=== PATIENT | female | born 1960 | race Caucasian/White ===

== ENCOUNTER 2019-05-05 07:06 | Inpatient (IN) | payer BC ==
[2019-05-05] MEDS ORDERED: EFFEXOR37.5 MG PO (07:10)
[2019-05-05 07:46] LABS: BASOPHILS 0.1 % (0-2); EOSINOPHILS 0.1 % (0-7); HEMATOCRIT 40.6 % (36.0-48.0); HEMOGLOBIN 13.8 g/dL (12-16); IMMATURE GRANULOCYTES 0.3 % (0-5); MCH 29.8 pg (26.0-34.0); MCV 87.7 fL (80.0-100.0); MEAN PLATELET VOLUME 8.6 fL (7.4-10.4); MONOCYTES 8.8 % (2-11); NEUTROPHILS 83.7 % (40-80); PLATELET COUNT 225 10x3/uL (130-400); RBC 4.63 10x6/uL (4.00-5.40); RDW 12.9 % (11.5-14.5); WBC 18.7 10x3/uL (4.8-10.8)
[2019-05-05 07:52] LABS: ALKALINE PHOSPHATASE 82 U/L (46-116); ALT (SGPT) 26 U/L (10-68); BILIRUBIN - TOTAL 0.26 mg/dL (0.2-1.3); CALC OSMOLALITY 285 mosm/kg (275-300); CARBON DIOXIDE 29.4 mmol/L (21.0-32.0); CHLORIDE - SERUM 105 mmol/L (98-107); CREATININE - SERUM 0.8 mg/dL (0.6-1.3); GLUCOSE 130 mg/dL (74-106); POTASSIUM - SERUM 4.5 mmol/L (3.5-5.1); SODIUM 142 mmol/L (136-145); UREA NITROGEN 16 mg/dL (7-18); eGFR NON AFRICAN AMERICAN 78 mL/min (90-120)
[2019-05-05 08:03] LABS: CKMB 0.3 U/L (0.0-3.6); CREATINE KINASE 12 UL (21-215); MAGNESIUM - SERUM 2.2 mg/dL (1.8-2.4); TROPONIN-I < 0.017 ng/mL (0.000-0.060)
[2019-05-05 08:34] LABS: APTT 27.5 SECONDS (22.8-39.4); INR 1.02 (0.85-1.17); PROTIME 12.9 SECONDS (11.6-15.0)
[2019-05-05 09:10] VITALS: BP 112/60
--- NOTE | 2019-05-05 10:27 | NUR ---
RECEIVED TO ROOM VIA WHEELCHAIR WITH NASAL CANNULA AT 2.5L. RIGHT HAND PIV WITH VANC. INFUSING. WILL ADMIT.
[2019-05-05 10:30] VITALS: BP 124/59; BMI 32.7
--- NOTE | 2019-05-05 10:58 | MORECARE ---
CASE MANAGEMENT DISCHARGE SUMMARY PATIENT: JENNA ROPER UNIT: [id number] ADM DATE: 05/05/19 AGE: 58 : 58 SEX: F ROOM/BED: D.7864 AUTHOR: SELMA,DOC PHYSICIAN: REFERRING PHYSICIAN: ZOE MCFARLAND MD DATE OF SERVICE: 05/05/19 Discharge Plan Patient Name: JENNA ROPER Facility: [facility]:[place] : 1960 Planned Disposition: Home Anticipated Discharge Date: 05/07/19 Discharge Date: Expected LOS: 2 Initial Reviewer: [email or web address] Initial Review Date: 05/05/2019 Generated: 05/05/19 11:57 am Comments DCP- Discharge Planning Updated by [email or web address]: Dana Prather on 05/05/19 9:[address] Patient Name: JENNA ROPER Admission Status: ER Accout number: [id number] Admission Date: 05-05-2019 : 1960 Admission Diagnosis: Attending: ZOE MCFARLAND Current LOS: 1 Anticipated DC Date: 05-07-2019 Planned Disposition: Home Primary Insurance: BLUE CROSS TRUE BLUE PPO Discharge Planning Comments: CM met with patient and her , Nakul Roper to complete initial dc planning assessment. CM educated patient on the CM role and verbal consent given by patient to complete assessment. CM verified patient's address, phone number, and emergency contact phone numbers. Patient lives at home with her and reports she is independent in her care at home. At discharge patient plans to return home with her and feels this is a safe discharge. CM discussed availability of home health, rehab services, and medical equipment. Patient denied known discharge needs at this time. Patient reports her will transport her home at time of discharge. CM will continue to follow and will assist as needed with dc plans/needs. Computer Peripheral Equipment Operator: Dana Prather RN, [facility] DCP- Discharge Planning Updated by [email or web address]: Dana Prather on 05/05/19 9:[address] Patient Name: JENNA ROPER Encounter No: [id number] : 1960 Primary Insurance: BLUE CROSS TRUE BLUE PPO Computer Peripheral Equipment Operator: :Dana Prather Note: Patient is a transfer from an outside facility for possible pericarditis. Patient was given antibiotics prior to arrival. Patient is a white cell count 20,000. IV Vanc and IV zosyn, telemetry. Cardiology Consult Dana Prather DCPIA - Discharge Planning Initial Assessment Updated by [email or web address]: Dana Prather on 05/05/19 10:56 am * Is the patient Alert and Oriented? Yes * How many steps to enter\exit or inside your home? one * PCP Dr. Winifred Enrique - [facility] * Pharmacy [facility] [place] * Preadmission Environment Home with Family * ADLs Independent * Equipment None * List name and contact numbers for known caregivers / representatives who currently or will assist patient after discharge: Nakul Roper - [phone] * Verbal permission to speak to the caregivers and representatives has been obtained from the patient. Yes * Community resources currently utilized None * Additional services required to return to the preadmission environment? No * Can the patient safely return to the preadmission environment? Yes * Has this patient been hospitalized within the prior 30 days at any hospital? No Patient Name: JENNA ROPER Page [id number] at 1058 All edits/amendments must be made on the electronic document DICTATION DATE: 05/05/19 1057 SIMULATION ANALYST: CARLYN 05/05/19 1057 RPT#: [id number] [place] DATE: STATUS: ADM IN [facility] [address] [place] [address] END OF REPORT
[2019-05-05 12:28] VITALS: BP 124/59
[2019-05-05 14:39] LABS: CREATINE KINASE 10 UL (21-215); TROPONIN-I < 0.017 ng/mL (0.000-0.060)
--- NOTE | 2019-05-05 16:01 | NUR ---
RESTING WITH SPOUSE SLEEPING IN CHAIR. RESP ARE EVEN. WILL CPOC.
[2019-05-05 16:14] VITALS: BP 124/59
[2019-05-05 20:00] VITALS: BP 101/60
[2019-05-05 20:17] LABS: CKMB 0.2 U/L (0.0-3.6)
[2019-05-05 20:19] LABS: CREATINE KINASE 7 UL (21-215); TROPONIN-I < 0.017 ng/mL (0.000-0.060)
[2019-05-06] VITALS: BP 110/58
[2019-05-06 04:00] VITALS: BP 112/56
[2019-05-06 06:36] LABS: BASOPHILS 0.2 % (0-2); EOSINOPHILS 1.8 % (0-7); HEMATOCRIT 39.1 % (36.0-48.0); IMMATURE GRANULOCYTES 0.4 % (0-5); LYMPHOCYTES 17.4 % (15-50); MCH 29.5 pg (26.0-34.0); MCHC 33.2 g/dL (31.0-37.0); MCV 88.9 fL (80.0-100.0); MEAN PLATELET VOLUME 8.7 fL (7.4-10.4); MONOCYTES 10.2 % (2-11); PLATELET COUNT 208 10x3/uL (130-400); RDW 13.1 % (11.5-14.5)
[2019-05-06 06:45] LABS: WBC 11.1 10x3/uL (4.8-10.8)
--- NOTE | 2019-05-06 07:14 | NUR ---
ROUNDING DONE WITH PATIENT BEING NPO FOR STRESS TEST. ON HEART MONITOR SHOWING SR, HR 79. ON 2.5L PER NC. RIGHT HAND SEEN WITH SALINE LOCK, ORANGE SWAB CAP IN USE. ON BEDREST. NEEDING URINE SAMPLE STILL.
[2019-05-06 07:26] LABS: ALBUMIN 2.7 g/dL (3.4-5.0); ALKALINE PHOSPHATASE 78 U/L (46-116); ALT (SGPT) 27 U/L (10-68); BILIRUBIN - TOTAL 0.37 mg/dL (0.2-1.3); CALC OSMOLALITY 279 mosm/kg (275-300); CALCIUM 8.8 mg/dL (8.5-10.1); CARBON DIOXIDE 25.3 mmol/L (21.0-32.0); CHLORIDE - SERUM 106 mmol/L (98-107); CREATININE - SERUM 0.6 mg/dL (0.6-1.3); GLUCOSE 99 mg/dL (74-106); POTASSIUM - SERUM 3.9 mmol/L (3.5-5.1); PROTEIN - SERUM 6.7 g/dL (6.4-8.2); SODIUM 141 mmol/L (136-145); UREA NITROGEN 11 mg/dL (7-18); eGFR NON AFRICAN AMERICAN > 90 mL/min (90-120)
--- NOTE | 2019-05-06 07:41 | NUR ---
PREVIOUS ROUNDING NOTE DONE UNDER NIGHT NURSE BY ME. ROUNDING DONE WITH PATIENT BEING NPO FOR STRESS TEST. ON HEART MONITOR SHOWING SR, HR 79. ON 2.5 L PER NC. RIGHT HAND SEEN WITH SALINE LOCK. ORANGE SWAB CAP IN USE. ON BEDREST. STILL NEEDING URINE SAMPLE.
--- NOTE | 2019-05-06 08:50 | NUR ---
TO RADIOLOGY VIA WHEELCHAIR FOR START OF STRESS TEST.
[2019-05-06 09:23] VITALS: BP 116/59
--- NOTE | 2019-05-06 09:47 | NUR ---
RETURNS FROM RADIOLOGY OF STRESS TEST.
--- NOTE | 2019-05-06 11:20 | CN ---
PATIENT NAME:JENNA ROPER MEDICAL RECORD: [id number] : 58 LOCATION:D. D.2114 ADMIT DATE: 05/05/19 ACCOUNT: [id number] CONSULTING PHYSICIAN: ALLIE QUILES MD REFERRING PHYSICIAN: ZOE MCFARLAND MD DATE OF CONSULTATION: 05/05/2019 DATE OF SERVICE: 05/05/2019. DIAGNOSES: 1. Pericardial effusion. 2. Chest pain. HISTORY OF PRESENT ILLNESS: Mrs. Roper presents to me in Medical with chest pain. She was noted on CT there to have pericardial effusion and sent here for higher level of care. Echocardiogram here revealed a small pericardial effusion, not at all hemodynamically significant. Overall, normal echo else ness, she does continue to have chest pain. She does not have a history of coronary artery disease. PHYSICAL EXAMINATION: GENERAL APPEARANCE: Well-nourished, well-developed, appears stated age. Level of distress, comfortable. PSYCHIATRIC: Mental status, alert, normal affect. Orientation, oriented to time, place and person. EYES: Lids and conjunctiva, noninjected. No discharge, no pallor. ENT: Lips, teeth, gums, normal dentition. Oropharynx, no cyanosis, no pallor. NECK: Carotid arteries, bilateral normal upstroke, no bruits, no thrills. JUGULAR VEINS: No jugular venous pressure or distention. CERVICAL LYMPH NODES: Nontender, nonenlarged. THYROID: Not enlarged. Nontender. No nodules. LUNGS: Respiratory effort, unlabored. CHEST: Normal curvature. No thoracic deformity. No chest wall tenderness. Percussion, resonant. Auscultation, clear. No wheezes, no rales, no rhonchi. CARDIOVASCULAR: Precordial exam, nondisplaced. No heaves or pericardial thrills. Rate and rhythm, regular. Heart sounds, normal S1, normal S2. No S3, no gallop, no rub. Systolic murmur, not heard. Diastolic murmur, not heard. EXTREMITIES: No cyanosis, no edema. Peripheral pulses, full and equal in all extremities, except as noted. No bruits appreciated. ABDOMEN: Soft, nondistended. Normal aorta. No bruit. Nontender. No masses. Liver, nontender, no hepatomegaly. Spleen, nontender, no splenomegaly. MUSCULOSKELETAL: No joint tenderness. No joint swelling. No erythema. NEUROLOGICAL: Normal gait, normal strength, normal tone. SKIN: Warm and dry. OVERALL IMPRESSION: Chest pain. She very well may have a viral pericarditis; however, the pericardial effusion is minimal. Her troponins are normal. White blood cell count is elevated at 18.7. She has been treated with antibiotics for that. We will get a stress test with Cardiolite imaging tomorrow to make sure that this is not angina. Further care depends upon the findings of the stress test. TRANSINT:[id number] Voice Confirmation ID: [id number] DOCUMENT ID: [id number] CONSULT REPORT [id number] JENNA ROPER JEFFREY MD at 1120 CC: [id number] DICTATION DATE: 05/05/19 1646 PRE SCHOOL MANAGER: 05/05/19 1901 ADM IN [facility] [address] [place] [address]
--- NOTE | 2019-05-06 11:20 | EC ---
PATIENT:JENNA SANTIAGO DATE OF SERVICE: 05/05/19 SEX: F MEDICAL RECORD: [id number] DATE OF : 58 LOCATION:D.M2 D.211 AGE OF PATIENT: 58 ADMISSION DATE: 05/05/19 REFERRING PHYSICIAN: INTERPRETING PHYSICIAN: ALLIE GRIGSBY MD ECHOCARDIOGRAM REPORT ECHO CHARGES 4 ECHO COMPLETE Date: 05/05/19 CLINICAL DIAGNOSIS: PERICARDIAL EFFUSION ECHOCARDIOGRAPHIC MEASUREMENTS (adult normal given) AC root (d.<3.7cm) 2.5 cm LV Septum d (<1.2 cm> 0.8 cm Valve Excursion 1.2 cm LV Septum (systole) 1.2 cm Left Atria (s.<4.0cm> 3.1 cm LVPW d(<1.2cm) 1.0 cm RV (d.<2.3cm) 2.6 cm LVPW (sytole) 1.1 cm LV diastole(<5.6CM) 5.5 cm MV E-F(>70mm/sec) cm LV systole 4.7 cm LVOT Diameter 1.9 cm MV exc.(>10mm) cm Est.ejection fraction (50-75%) % DOPPLER: LVIT cm/sec A 68 cm/sec E 82 cm/sec LA cm/sec RVSP 31.0 mmHg LVOT 118 cm/sec AOP1/2T m/s Asc. Ao 205 cm/sec RVOT 80 cm/sec RA cm/sec PA 99 cm/sec AV Gradient Peak 16.8 mmHg AV Mean 9.6 mmHg AV Area 1.7 cm MV Gradient Peak 3.7 mmHg MV Mean 2.1 mmHg MV Area cm COMMENTS: Back Wedger: [facility] Child Care: 1 Dr. Grigsby TAPE# PACS Pericardial Effusion Y DATE OF SERVICE: 05/05/2019 FINDINGS: 1. Left ventricular chamber size is within normal limits. Left ventricular systolic function is normal. Overall ejection fraction is estimated at 60%. 2. Left atrium is within normal limits. Left atrium, right atrium, and right ventricular chamber sizes are within normal limit. 3. Valvular structures have normal structure and motion. 4. Doppler interrogation reveals trace mitral regurgitation and mild tricuspid regurgitation. No other valvular insufficiency or stenosis. ECHOCARDIOGRAM REPORT [id number] JENNA SANTIAGO 5. Ujzhb-dt-[id number] pericardial effusion is present. This is not hemodynamically significant. 6. No evidence of left ventricular thrombus. TRANSINT:[id number] Voice Confirmation ID: [id number] DOCUMENT ID: [id number] ALLIE GRIGSBY MD at 1120 CC: [id number] DICTATION DATE: 05/05/19 1638 VINYL DIPPER: 05/05/[address] [facility] [address] [place] [id number]
--- NOTE | 2019-05-06 11:24 | NUR ---
TO RADIOLOGY FOR LAST OF STRESS TEST PER WHEELCHAIR.
--- NOTE | 2019-05-06 11:55 | NUR ---
RETURNS FROM RADIOLOGY, STILL NPO UNTIL FURTHER ORDERS.
--- NOTE | 2019-05-06 12:23 | NUR ---
PER DR QUILES, STRESS TEST IS NORMAL AND PATIENT CAN EAT. LUNCH TRAY IS ORDERED.
--- NOTE | 2019-05-06 12:49 | NUR ---
URINE SENT TO LAB ORDERED.
[2019-05-06 13:18] VITALS: BP 128/69
[2019-05-06 13:50] LABS: APPEARANCE CLEAR (CLEAR); BILIRUBIN NEGATIVE (NEGATIVE); COLOR YELLOW (YELLOW); GLUCOSE NEGATIVE (NEGATIVE); KETONE NEGATIVE (NEGATIVE); NITRITE NEGATIVE (NEGATIVE); PROTEIN NEGATIVE (NEGATIVE); UROBILINOGEN NORMAL (NORMAL)
--- NOTE | 2019-05-06 16:32 | NUR ---
DENIES NEEDS AT THIS TIME. AWAITING FOR DR TO MAKE ROUNDS TO SEE WHAT IS NEXT.
[2019-05-06 18:58] VITALS: BP 101/57
--- NOTE | 2019-05-06 19:42 | NUR ---
RESUMING PATIENT CARE. PATIENT IS ALERT AND ORIENTED, RESTING COMFORTABLY IN BED. RESPIRATIONS ARE EVEN AND UNLABORED. NO S/S OF DISTRESS. NO C/O PAIN. CALL LIGHT WITHIN REACH. FAMILY AT BEDSIDE. WILL CPOC.
[2019-05-06 20:00] VITALS: BP 110/60
[2019-05-07] VITALS: BP 120/57
[2019-05-07 04:00] VITALS: BP 106/54
[2019-05-07 05:38] LABS: CALC OSMOLALITY 285 mosm/kg (275-300); CARBON DIOXIDE 29.2 mmol/L (21.0-32.0); CHLORIDE - SERUM 107 mmol/L (98-107); CREATININE - SERUM 0.6 mg/dL (0.6-1.3); GLUCOSE 82 mg/dL (74-106); POTASSIUM - SERUM 4.2 mmol/L (3.5-5.1); SODIUM 144 mmol/L (136-145); UREA NITROGEN 12 mg/dL (7-18); eGFR NON AFRICAN AMERICAN > 90 mL/min (90-120)
[2019-05-07 05:39] LABS: BASOPHILS 0.3 % (0-2); EOSINOPHILS 2.3 % (0-7); HEMATOCRIT 41.5 % (36.0-48.0); IMMATURE GRANULOCYTES 0.6 % (0-5); LYMPHOCYTES 21.9 % (15-50); MCH 29.9 pg (26.0-34.0); MCHC 33.7 g/dL (31.0-37.0); MCV 88.7 fL (80.0-100.0); MEAN PLATELET VOLUME 8.8 fL (7.4-10.4); MONOCYTES 7.3 % (2-11); NEUTROPHILS 67.6 % (40-80); PLATELET COUNT 242 10x3/uL (130-400); RBC 4.68 10x6/uL (4.00-5.40); WBC 10.5 10x3/uL (4.8-10.8)
--- NOTE | 2019-05-07 07:15 | NUR ---
RECEIVED PT IN BED AAOX4 RESP UNLABORED SITTING IN CHAIR DENIES ANY NEEDS OR DISCOMFORT NAD NOTED
[2019-05-07 09:41] VITALS: BP 119/68
--- NOTE | 2019-05-07 12:46 | NUR ---
REVIEWED DISCHARGE INSTRUCTIONS WITH PT STATES UNDERSTANDING COPY GIVEN DCD SALINE LOCK TO RT HAND WITH IV CATHETER INTACT SITE FREE OF REDNESS OR EDEMA PT DISCHARGED HOME LEFT UNIT VIA W/C IN STABLE CONDITION WITH ALL PERSONAL BELONGINGS
[2019-05-07 12:58] VITALS: BP 106/71
--- NOTE | 2019-05-08 08:05 | MORECARE ---
CASE MANAGEMENT DISCHARGE SUMMARY PATIENT: JENNA ROPER UNIT: [id number] ADM DATE: 05/05/19 AGE: 58 : 58 SEX: F ROOM/BED: D.4374 AUTHOR: MARCO HAHN PHYSICIAN: REFERRING PHYSICIAN: ZOE MCFARLAND MD DATE OF SERVICE: 05/08/19 Discharge Plan Patient Name: JENNA ROPER Facility: [facility]:[place] : 1960 Planned Disposition: Home Anticipated Discharge Date: 05/07/19 Discharge Date: 05/07/2019 Expected LOS: 2 Initial Reviewer: [email or web address] Initial Review Date: 05/05/2019 Generated: 05/08/19 9:04 am Comments DCP- Discharge Planning Updated by [email or web address]: Dana Prather on 05/05/19 9:[address] Patient Name: JENNA ROPER Admission Status: ER Accout number: [id number] Admission Date: 05-05-2019 : 1960 Admission Diagnosis: Attending: ZOE MCFARLAND Current LOS: 1 Anticipated DC Date: 05-07-2019 Planned Disposition: Home Primary Insurance: BLUE CROSS TRUE BLUE PPO Discharge Planning Comments: CM met with patient and her , Nakul Roper to complete initial dc planning assessment. CM educated patient on the CM role and verbal consent given by patient to complete assessment. CM verified patient's address, phone number, and emergency contact phone numbers. Patient lives at home with her and reports she is independent in her care at home. At discharge patient plans to return home with her and feels this is a safe discharge. CM discussed availability of home health, rehab services, and medical equipment. Patient denied known discharge needs at this time. Patient reports her will transport her home at time of discharge. CM will continue to follow and will assist as needed with dc plans/needs. Claim Auditor: Dana Prather RN, [facility] DCP- Discharge Planning Updated by [email or web address]: Dana Prather on 05/05/19 9:[address] Patient Name: JENNA ROPER Encounter No: [id number] : 1960 Primary Insurance: BLUE CROSS TRUE BLUE PPO Claim Auditor: :Dana Prather Note: Patient is a transfer from an outside facility for possible pericarditis. Patient was given antibiotics prior to arrival. Patient is a white cell count 20,000. IV Vanc and IV zosyn, telemetry. Cardiology Consult Dana Prather DCPIA - Discharge Planning Initial Assessment Updated by [email or web address]: Dana Prather on 05/05/19 10:56 am * Is the patient Alert and Oriented? Yes * How many steps to enter\exit or inside your home? one * PCP Dr. Wniifred Enrique - [facility] * Pharmacy [facility] [place] * Preadmission Environment Home with Family * ADLs Independent * Equipment None * List name and contact numbers for known caregivers / representatives who currently or will assist patient after discharge: Nakul Roper - [phone] * Verbal permission to speak to the caregivers and representatives has been obtained from the patient. Yes * Community resources currently utilized None * Additional services required to return to the preadmission environment? No * Can the patient safely return to the preadmission environment? Yes * Has this patient been hospitalized within the prior 30 days at any hospital? No Last DP export: 05/05/19 9:58 a Patient Name: JENNA ROPER Page [id number] at 0805 All edits/amendments must be made on the electronic document DICTATION DATE: 05/08/19803 ROLLING CHAIR PUSHER: CARLYN 05/08/19803 RPT#: [id number] DC DATE:05/07/19 STATUS: DIS IN [facility] [address] [place] [address] END OF REPORT
--- NOTE | 2019-05-08 13:25 | ST ---
PATIENT:JENNA SANTIAGO MEDICAL RECORD: [id number] SEX: F [facility] ORDER #: ADMISSION DATE: 05/05/19 AGE OF PATIENT: 58 REFERRING PHYSICIAN: INTERPRETING PHYSICIAN: ALLIE QUILES MD DATE OF SERVICE: 05/06/2019 Nuclear Stress Test INDICATION: Chest pain of unknown etiology. She was exercised on standard Lexiscan protocol with 30 mCi of sestamibi injected at peak stress, 12 mCi were done previously for rest images. FINDINGS: Gated SPECT reveals preserved ejection fraction at 61% with good wall motion and thickening and brightening throughout all segments. SPECT imaging Cardiolite was used as myocardial fusion agent. There is homogeneous uptake throughout all segments at rest and stress with no evidence of inducible ischemia or previous infarction. OVERALL IMPRESSION: 1. This is a normal nuclear stress test with no evidence of inducible ischemia or previous infarction. 2. Gated SPECT reveals a preserved ejection fraction at 61%. In this patient with ongoing symptomatology, the current scan does not suggest the presence of hemodynamically significant coronary artery disease. Evaluate noncardiac etiology of chest pain. TRANSINT:[id number] Voice Confirmation ID: [id number] DOCUMENT ID: [id number] ALLIE QUILES MD at 1325 CC: [id number] DICTATION DATE: 05/06/19 1209 RADIOLOGIC TECHNOLOGIST CHIEF: 05/07/19 0230 DIS IN 05/07/19 [facility] [address] [place] [address]
== END 2019-05-07 12:46 | disposition home or self-care (01) | DRG 316 ==
LOC: D.ER 07:06 → D.M2 09:36
PROVIDERS: Family Medicine; ADMIT Internal Medicine Nephrology; ATTEND Internal Medicine Nephrology
DX: I31.9 Disease of pericardium, unspecified (principal); I31.3 Pericardial effusion (noninflammatory); I20.9 Angina pectoris, unspecified; Z87.891 Personal history of nicotine dependence